=== PATIENT | female | born 1965 | race Hispanic/Latino ===

== ENCOUNTER 2023-03-31 18:04 | Emergency (ER) | payer OTHER, SELFPAY ==
[2023-03-31 18:06] VITALS: BP 115/68; PULSE 73; RESP 18; TEMP 36.1; O2SAT 98; BMI 29.9
--- NOTE | 2023-03-31 18:17 | EDS_ITS ---
HPI History of Present Illness Chief Complaint: Back PFSH PFSH Allergy/AdvReac Type Severity Reaction Status Date / Time Cephalosporins Allergy Rash Verified 03/31/23 18:07 EXAM Physical Exam Const Vital Signs: 03/31/23 18:06 Temperature 96.9 F L Temperature Source Temporal Pulse Rate 73 Respiratory Rate 18 Blood Pressure 115/68 Blood Pressure Mean 83 Pulse Ox 98 Oxygen Delivery Method Room Air [facility] [place] Narrative Medical decision making narrative: HISTORY OF PRESENT ILLNESS: 57 -year-old male presents with back pain. States 1 week of lower right-sided back pain that does not radiate. Notes increased exertion recently walking uphill seems to make the pain worse. Denies any of the following symptoms. Patient denies any urinary complaint such as frequency urgency foul smell or any change. Denies any abdominal pain, nausea or vomiting. Denies any chest pain. Denies any syncope. Denies any falls or other recent trauma Patient denies any saddle anesthesia, urinary tension, bowel or bladder incontinence, lower extremity weakness, fever or IV drug use, no recent spinal manipulation or surgery, no recent urinary catheterization. REVIEW OF SYSTEMS: All other systems reviewed and are negative except as noted in the history of present illness. At least 10 review of systems reviewed and are negative except as noted in history of present illness. PHYSICAL EXAM: Nursing triage notes reviewed, Vital signs reviewed Constitutional: please see mdm Lungs: Clear to auscultation, No wheezing or rales. No increased work of breathing, no conversational dyspnea, no accessory muscle use, no nasal flaring. No respiratory distress noted Heart: Regular rate and rhythm, No murmurs, No rubs and No gallops, 2+ distal pulses (radial, femoral, posterior tibial) in all extremities Abdomen: Soft, there is no tenderness, rigidity, rebound or guarding, no obvious peritoneal signs, no palpable pulsatile abdominal masses, no auscultated abdominal bruit : No CVAT Extremities: No edema Back: No midline step-offs or deformities Neuro: Intact sensation L1-S1 dermatomal distributions. Intact 5/5 strength in hip flexion (T12-L3). Knee extension (L2-L4). Ankle dorsiflexion (L4-L5). Ankle plantar flexion (S1). Great toe extension (L5). 2+ patellar and Achilles DTRs. Skin: No rash or lesions noted MEDICAL DECISION MAKING: Chief Complaint: Back pain External records reviewed: No recent advanced imaging of the lower back Factors affecting care: None Social determinants of health: No IV drug use History obtained from others: The patient's Consults: none ALL IMAGES (IF OBTAINED) HAVE BEEN PERSONALLY REVIEWED AND INTERPRETED BY MYSELF. MDM Narrative: Patient was hemodynamically stable, afebrile, nontoxic-appearing. Exam was unremarkable for any focal neurologic deficits. Extremities are warm and well- perfused. I considered the following differential diagnosis: Musculoskeletal back pain, space-occupying lesion of the spinal (epidural abscess, epidural hematoma), cauda equina, conus medullaris, fracture dislocation, AAA, nephrolithiasis, pyelonephritis, aortic dissection The patient presented complaining of back pain. There was no history of recent fall or trauma. There was no evidence to support genitourinary etiology. There is also no evidence to suggest vascular pathology such as AAA dissection. No fevers or other evidence to suspect infectious processes, abscess, osteomyelitis etc. The patient?s neurological exam is normal with normal motor and sensory. There is no saddle paresthesias reported and no bowel or bladder incontinence or retention. I suspect the pain is mechanical in nature. Clinical suspicion, plan of care and management was discussed with the patient. The patient was instructed to follow up with their health care provider. The patient was also instructed to return if the pain worsened, changed, or developed weakness or bowel or bladder trouble. The patient agreed with plan. I completed a structured, evidence-based clinical evaluation to screen for acute non-traumatic spinal emergencies. The patient has a normal detailed neurologic exam and red flag historical factors were negative. The evidence indicates that the patient is very low risk for an acute spinal emergency and this is consistent with my clinical intuition. The risk of further workup is higher than the likelihood of the patient having a spinal epidural abscess or other dangerous emergency spinal condition. It is, therefore, in the patient?s best interest not to do additional emergent testing at this time. Shared Decision-Making I have discussed with the patient my clinical impression and the result of an evidence-based clinical evaluation to screen for spinal epidural abscess and other spinal emergencies, as well as the risk of further testing and hospitalization. The evidence shows that the risk for an acute spinal emergency is less than 1%. Although the risk of an acute spinal emergency has not been completely el iminated, the risks of further testing likely exceed any potential benefit, and the patient agrees with not pursuing further emergent evaluation for causes of back pain at this time. The patient and/or family, caregivers express understanding. The patient and/or family, caregivers agrees with the plan. Total critical care time today provided was at least 0 minutes. This excludes separately billable procedures. Critical care time (if documented) is secondary to the patient having high probability of clinically significant/life threatening deterioration in the patient's condition which required my urgent intervention. Kevin Lisa DO Discharge Plan Triage Chief Complaint: Back ED Provider: Kevin Lisa Dx/Rx/DC Orders Primary Care Provider: Kika Oliveira,Out of Referrals: Kika Oliveira,Out of [Primary Care Provider] -
[2023-03-31] MEDS: Ibuprofen 200 MG Tablet 400 MG PO (18:50)
[2023-03-31] MEDS: Oxycodone/Apap 5/325 Tablet PO (18:50)
[2023-03-31] MEDS: predniSONE 20 MG Tablet 40 MG PO (18:51)
[2023-03-31] MEDS: Lidocaine 5% Patch 1 PATCH TOPICAL (18:51)
== END 2023-03-31 19:09 | disposition home or self-care (01) ==
PROVIDERS: Emergency Provider Emergency Medicine; Visit Provider Emergency Medicine
DX: M54.50 Low back pain, unspecified (principal)
CPT/HCPCS: 99284